=== PATIENT | male | born 1995 | race African-American/Black ===

== ENCOUNTER 2017-03-01 16:49 | Emergency (ER) | payer SELFPAY ==
[2017-03-01 18:01] LABS: ASCORBIC ACID (UR NOT ORDER) NEG (NEG); BILIRUBIN, URINE NEGATIVE (NEG); ER URINALYSIS TAT 0 Hrs 30 Mins; KETONE, URINE NEGATIVE (NEG); LEUKOCYTE ESTERASE(NOT OR LARGE (NEG); NITRITE (URINE) NEG (NEG); WBC (NOT ORDERED) (RFLEX) 47 (0-5)
[2017-03-01 19:44] LABS: SOURCE: MALE URINE
[2017-03-01 19:48] LABS: CHLAMYDIA TRACH PCR DETECTED (NOT DETEC); GC PCR NOT DETECTED (NOT DETECT)
== END 2017-03-01 18:40 | disposition home or self-care (01) ==
LOC: ER 16:49
PROVIDERS: Physician Assistant
DX: N34.2 Other urethritis (principal); F17.200 Nicotine dependence, unspecified, uncomplicated
CPT/HCPCS: 81001; 87086; 87491; 87591; 96372; 99284; A9270-GY; J0696